=== PATIENT | female | born 1995 | race African-American/Black ===

== ENCOUNTER 2016-11-07 23:02 | Emergency (ER) | payer BC ==
[~2016-11-07] VITALS: Ht 167.6 cm; Wt 64.5 kg
[2016-11-07 23:04] VITALS: Ht 167.6 cm; Wt 64.5 kg
--- NOTE | 2016-11-08 00:15 | ERD ---
ER Documentation Chief Complaint Date/Time DATE: 11/08/16 TIME: 00:15 Chief Complaint scaterred hive like rashes HPI This is a 21 year female scattered hive-like rash for the past 2 days. She has an unknown exposure. No difficulty breathing. No tongue swelling. No other current complaints ROS All systems reviewed and are negative except as per history of present illness. Allergies Allergies: Coded Allergies: No Known Allergy (Unverified , 11/07/16) PMhx/Soc Medical and Surgical Hx: pt denies Medical Hx, pt denies Surgical Hx History of Surgery: No Anesthesia Reaction: No Hx Neurological Disorder: No Hx Respiratory Disorders: No Hx Cardiac Disorders: No Hx Psychiatric Problems: No Hx Miscellaneous Medical Probl: No Hx Alcohol Use: Yes (occasional drinker) Hx Substance Use: No Smoking Status: Never smoker Physical Exam Vitals Vital Signs Date Time Temp Pulse Resp B/P Pulse Ox O2 Delivery O2 Flow Rate FiO2 11/07/16 23:04 97.8 94 20 119/58 98 Physical Exam Const: [] Head: Atraumatic Eyes: Normal Conjunctiva ENT: Normal External Ears, Nose and Mouth. Neck: Full range of motion..~ No meningismus. Resp: Clear to auscultation Cardio: Regular rate and rhythm, no murmurs Abd: Soft, non tender, non distended. Normal bowel sounds Skin: Maculopapular rash involving trunk and all 4 extremities. Now weeping nonblanching non-crusting. Back: No midline or flank tenderness Ext: No cyanosis, or edema Neur: Awake and alert Psych: Normal Mood and Affect Results 24 hrs Current Medications Medications (Trade) Dose Ordered Sig/Cynthia Route PRN Reason Start Time Stop Time Status Last Admin Dose Admin Dexamethasone (Decadron) 10 mg ONCE ONCE IM 11/08/16 00:30 11/08/16 00:31 Procedures/MDM Patient's dermatologic symptoms have stabilized while they have been evaluated in the department and are appropriate for outpatient work up. No evidence of Abiodun Lito's syndrome, Kawasaki's, or sepsis. Departure Diagnosis: Primary Impression: Rash Condition: Stable MARIA ESTHER ESPINOZA Nov 08, 2016 00:15
[2016-11-08] MEDS ORDERED: HC1C30 TOP (00:17)
[2016-11-08] MEDS ORDERED: BEN50 PO (00:17)
[2016-11-08] MEDS ORDERED: PRED20TA PO (00:17)
[2016-11-08] MEDS ORDERED: DEXAMETHASONE 10 MG/ML 1 ML INJ IM ONE (00:30)
[2016-11-08 00:43] VITALS: BP 119/62; PULSE 86; RESP 18
== END 2016-11-08 00:40 | disposition home or self-care (01) ==
LOC: E/R 23:02
DX: R21 Rash and other nonspecific skin eruption (principal)
CPT/HCPCS: 96372; 99284; J1100